=== PATIENT | female | born 1950 | race Two or more races ===

== ENCOUNTER → 2017-01-20 | Outpatient (CLI) | payer MEDICARE ==
[~2017-01-20] MED LIST: IODIXANOL 320 MG/ML 10 ML VIAL (for Rad CT) IV ONE
--- NOTE | 2017-01-20 15:17 | RADRPT ---
EXAM DATE/TIME: 01/20/2017 14:00 [place] COMPARISON: No previous studies available for comparison. INDICATIONS : Evaluate for lower abdomen pain. IV CONTRAST: 75 cc Visipaque (iodixanol) IV ORAL CONTRAST: Prescribed oral contrast ingested. RADIATION DOSE: 19.93 CTDIvol (mGy) MEDICAL HISTORY : Cardiovascular disease. SURGICAL HISTORY : CABG ENCOUNTER: Initial ACUITY: 1 day PAIN SCALE: 4/10 LOCATION: Bilateral lower quadrant Patient was premedicated for underlying contrast media allergy. TECHNIQUE: Volumetric scanning of the abdomen and pelvis was performed. Using automated exposure control and ad justment of the mA and/or kV according to patient size, radiation dose was kept as low as reasonably achievable to obtain optimal diagnostic quality images. DICOM format image data is available electro nically for review and comparison. FINDINGS: LOWER LUNGS: The visualized lower lungs are clear. LIVER: Small region of focal fat near the falciform ligament. No significant focal mass or hepatic ductal di latation or evidence for volume loss. Gallbladder is surgically absent. SPLEEN: Normal size without lesion. PANCREAS: Within normal limits. KIDNEYS: Lobulated renal contours with regions of renal scarring most prominently in the right kidney. Multipl e punctate bilateral calcified renal calculi. A dominant 6 mm calcified calculus in the superior pole of the right kidney. Kidneys otherwise demonstrate symmetrical enhancement without evidence for hydr onephrosis. ADRENAL GLANDS: Within normal limits. VASCULAR: There is no aortic aneurysm. BOWEL/MESENTERY: There is slight prominence of the very distal ileum with fecalization extending to the ileocecal valv e. There is a transition point in the right lower abdomen with more proximal ileal and jejunal loops normal in caliber. The colon is not distended also contains moderate amount stool. There is moderate diverticulosis in the sigmoid colon which is completely decompressed accentuating the sigmoid wall. T here is slight prominence of vasa recti in this region with several small regional nodes. No drainabl e fluid collections or free fluid. Appendix is not directly visualized. No significant inflammatory c hange in the right lower quadrant were presacral adenopathy. ABDOMINAL WALL: Multiple surgical clips in the right lower quadrant as well as the right anterior abdominal wall. RETROPERITONEUM: There is no lymphadenopathy. BLADDER: Bladder is distended but otherwise unremarkable. REPRODUCTIVE: Uterus is not definitively visualized and may be surgically absent. INGUINAL: There is no lymphadenopathy or hernia. MUSCULOSKELETAL: Within normal limits for patient age. CONCLUSION: 1. Minimally prominent distal ileal loops and fecalization extending to the ileocecal valve with vasquez sition point in the right lower abdomen. The proximal ileal and jejunal loops are normal in caliber. The findings are most consistent with more chronic partial obstruction or adynamic ileus possibly sec ondary to adhesions. No evidence for bowel obstruction or perforation. 2. Moderate sigmoid diverticulosis with slight prominence of the vasa recta and minimally prominent r egional lymph nodes. This may reflect mild diverticulitis/colitis in the appropriate clinical setting . 3. Bilateral renal cortical scarring, right greater than left, with punctate calcified renal calculi and single dominant 6 mm calyceal calculus in the superior pole of the right kidney. No evidence for obstructive uropathy. Robbie Ricketts MD on January 20, 2017 at 15:00 Board Certified Radiologist. This report was verified electronically.
== END ==
LOC: HRAD 12:20
PROVIDERS: ATTEND Family Medicine
DX: R10.32 Left lower quadrant pain (principal)
CPT/HCPCS: 74177; Q9967